=== PATIENT | female | born 2000 | race Caucasian/White ===

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

== ENCOUNTER 2022-01-28 11:52 | Outpatient (CLI) | payer BC, OTHER ==
[~2022-01-28 11:52] MED LIST: AMOX TR-K CLV1 EAC4 PO
== END 2022-01-28 12:54 | disposition home or self-care (01) ==
LOC: GENOP 11:52
DX: O26.853 Spotting complicating pregnancy, third trimester (principal); Z3A.29 29 weeks gestation of pregnancy
CPT/HCPCS: 81001; G0463

== ENCOUNTER 2022-01-28 15:52 | Observation (INO) | payer BC, OTHER | END 2022-01-29 08:36 | disposition home or self-care (01) | LOC: GENOP 15:52 → OB 17:12 | PROVIDERS: ADMIT Obstetrics & Gynecology | DX: O46.93 Antepartum hemorrhage, unspecified, third trimester (principal); O10.913 Unspecified pre-existing hypertension complicating pregnancy, third trimester; Z3A.29 29 weeks gestation of pregnancy | CPT/HCPCS: 59025; 82731; 96360; 96361; 96372; G0378; J0702 ==